=== PATIENT | male | born 1960 | race Two or more races ===

== ENCOUNTER 2020-09-07 00:01 | Inpatient (IN) | payer MEDICARE, OTHER ==
[~2020-09-07] VITALS: Ht 162.6 cm; Wt 79.4 kg
[2020-09-08] MEDS ORDERED: MAGNESIUM HYDROXIDE 30 ML UDC PO PRN (03:30)
[2020-09-08] MEDS ORDERED: MAG HYDROX/AL HYDROX/SIMETH 30 ML UDC PO PRN (03:30)
[2020-09-08] MEDS ORDERED: BLOOD SUGAR DIAGNOSTIC 1 EACH STRIP IN ONE (03:30)
[2020-09-08] MEDS ORDERED: ACETAMINOPHEN 325 MG TABLET PO PRN (03:30)
[2020-09-08] MEDS ORDERED: TEMAZEPAM 7.5 MG CAPSULE PO PRN (03:30)
[2020-09-08] MEDS ORDERED: HYDR-4384 PO (03:53)
[2020-09-08] MEDS ORDERED: TADA5TAB2 PO (03:53)
[2020-09-08] MEDS ORDERED: DORZ10DR10 EACHEYE (03:53)
[2020-09-08] MEDS ORDERED: ATEN25TA PO (03:53)
[2020-09-08] MEDS ORDERED: BUPR300T52 PO (03:53)
[2020-09-08] MEDS ORDERED: ATOR10TA PO (03:53)
[2020-09-08] MEDS ORDERED: OMEP40CA13 PO (03:53)
[2020-09-08] MEDS ORDERED: PRED5DRO16 EACHEYE (03:53)
[2020-09-08] MEDS ORDERED: LISI2.5T2 PO (03:53)
[2020-09-08] MEDS ORDERED: SIMV10TA98 PO (03:53)
[2020-09-08] MEDS ORDERED: DEXT15DR6 EACHEYE (03:53)
[2020-09-08] MEDS ORDERED: BUPR150T5 PO (03:53)
[2020-09-08] MEDS ORDERED: BIMA2.5D5 EACHEYE (03:53)
[2020-09-08] MEDS ORDERED: LEVE500T9 PO (03:53)
[2020-09-08] MEDS ORDERED: FINA5TAB11 PO (03:53)
[2020-09-08] MEDS ORDERED: GABA800T11 PO (03:53)
[2020-09-08] MEDS ORDERED: FOLI1CAP7 PO (03:53)
[2020-09-08] MEDS ORDERED: LATA2.5D15 EACHEYE (03:53)
[2020-09-08] MEDS ORDERED: ASPI-1169 PO (03:53)
[2020-09-08] MEDS ORDERED: BRIM5DRO3 LEFTEYE (03:53)
[2020-09-08 04:10] VITALS: BP 133/60
[2020-09-08] MEDS ORDERED: IBUP-1957 PO (04:13)
[2020-09-08] MEDS ORDERED: DIPH25CA83 PO (04:13)
[2020-09-08] MEDS: LORAZEPAM 0.5 MG TABLET PO PRN ×2 (04:27→11:37)
--- NOTE | 2020-09-08 05:37 | NUR ---
GPS TRACK SUPERVISOR NOTES: ADMITTED A 60YO MALE FROM [facility] DIRECT ADMIT ON 5150 HOLD FOR DANGER TO SELF, PER HOLD, PATIENT STATED THAT HE DID NOT FEEL LIKE LIVING ANYMORE, THAT LIFE IS NOT WORTH IT, AND THAT HE HAD THOUGHTS OF TAKING PILLS TO END HIS LIFE. PATIENT WILL BE UNDER THE CARE OF DR. GREGORIO AND DR. QUINTERO FOR PSYCH AND MEDICAL DOCTORS RESPECTIVELY. SKIN AND BODY ASSESSMENT DONE- NO SKIN ISSUES NOTED AT THIS TIME. PATIENT HAS A CONTINUOS BLOOD GLUCOSE MONITOR ON THE RIGHT LOWER QUADRANT OF THE BODY AND AN INSULIN PUMP ON THE LEFT LOWER QUADRANT OF THE ABDOMEN. ORIENTATION TO UNIT STAFF, DOCTORS AND POLICIES DONE. PATIENT ADVISED OF HIS HOLD. PT EVAL TRIGGERED FOR PATIENT SINCE HE IS UNABLE TO WALK AND HAS HAD MULTIPLE FALL INCIDENTS AT HOME. MED RECONCILIATION ALL MEDS INPUTTED IN THE SYSTEM- DR. QUINTERO MADE AWARE. PATIENT REQUESTED FOR ATIVAN 1 MG FOR ANXIETY- ADMINISTERED PRN ORDER. PROVIDED PATIENT WITH SNACKS AND TOILETRIES WELL. Q15 MIN CHECKS INITIATED. CARE PLAN STARTED. SAFETY AND FALL PRECAUTIONS OBSERVED. BED ALARM KEPT ON. WILL ENDORSE PATIENT'S CARE TO DAY SHIFT NURSE.
[2020-09-08 08:00] VITALS: BP 137/70
[2020-09-08] MEDS: PANTOPRAZOLE 40 MG TABLET.DR PO SCH (08:04)
[2020-09-08] MEDS: VIT B CMPLX 3/FA/VIT C/BIOTIN 1 TAB TABLET PO SCH (08:47)
[2020-09-08] MEDS: GABAPENTIN 400 MG CAPSULE PO SCH ×3 (08:47→16:23)
[2020-09-08] MEDS: ASPIRIN 81 MG TAB.CHEW PO SCH (08:47)
[2020-09-08] MEDS: LISINOPRIL (5MG) 5 MG TABLET PO SCH (08:48)
[2020-09-08] MEDS: LEVETIRACETAM (250 MG) 250 MG TABLET PO SCH ×2 (08:48→16:24)
[2020-09-08] MEDS: FINASTERIDE (5 MG) 5 MG TABLET PO SCH (08:48)
[2020-09-08] MEDS: ATENOLOL 25 MG TABLET PO SCH (08:48)
[2020-09-08] MEDS ORDERED: TADALAFIL PO SCH (09:00)
[2020-09-08] MEDS: HYDROCODONE/APAP 5/325MG TABLET PO PRN ×2 (09:53→16:24)
[2020-09-08] MEDS: DORZOLAMIDE OPTH 2% 10 ML BOTTLE EACHEYE SCH ×2 (11:18→16:24)
[2020-09-08] MEDS: prednisoLONE ACET 1% OPHT DROP 5 ML BOTTLE EACHEYE SCH ×2 (11:18→16:24)
--- NOTE | 2020-09-08 11:38 | NUR ---
RN NOTE- C/O ANXIETY. ATIVAN 1 MG GIVEN
[2020-09-08] MEDS: BLOOD SUGAR DIAGNOSTIC 1 EACH STRIP IN SCH ×3 (11:45→22:09)
--- NOTE | 2020-09-08 11:54 | NUR ---
Family Contact: SW called the pts , Carol ([phone]), and informed her that the pt is going to be discharged back home once he is stable and cleared for discharge. Pts stated that she will be available to pick him up when that time comes and stated that she is the pts [facility] caregiver.
--- NOTE | 2020-09-08 13:35 | NUR ---
Initial Discharge Plan: Pt currently resides at his home with his , Carol ([phone]), located at [address] [place] [address]; ([phone]). Per pt, he would like to return to his home. SW will work with the pt and the MD regarding appropriate discharge planning. SW will form a safe and proper discharge.
[2020-09-08 16:00] VITALS: BP 154/84
[2020-09-08 20:36] VITALS: BP 153/73
[2020-09-08] MEDS: TRAZODONE 50 MG TABLET PO SCH (21:58)
[2020-09-08] MEDS: ATORVASTATIN 10 MG TABLET PO SCH (21:58)
[2020-09-08] MEDS: LATANOPROST EYE DROP 0.005% 2.5 ML BOTTLE OP SCH (21:58)
[2020-09-09] MEDS: HYDROCODONE/APAP 5/325MG TABLET PO PRN ×3 (00:50→16:23)
--- NOTE | 2020-09-09 00:52 | NUR ---
GPS RN NOTES: PT COMPLAINED OF LOWER BACK PAIN, RATES PAIN LEVEL 9/10. NORCO 5/325MG 1TAB GIVEN PO PRN ORDERED AT 0051. WILL CONTINUE TO MONITOR AND ASSESS.
[2020-09-09 06:23] LABS: BASOPHILS % (AUTO) 0.7 % (0.0-2.0); EOSINOPHILS % (AUTO) 2.9 % (0.0-6.0); HEMATOCRIT 37 % (39-51); LYMPHOCYTES # (AUTO) 1.2 /CMM (0.8-4.8); LYMPHOCYTES % (AUTO) 28.8 % (20.0-44.0); MEAN CORPUSCULAR HGB CONC 33 g/dl (31.0-36.0); MEAN CORPUSCULAR VOLUME 90 fL (80-96); MONOCYTES # (AUTO) 0.3 /CMM (0.1-1.30); MONOCYTES % (AUTO) 6.4 % (2.0-12.0); NEUTROPHILS # (AUTO) 2.6 /CMM (1.8-8.9); NEUTROPHILS % (AUTO) 61.2 % (43.0-81.0); PLATELET COUNT (AUTO) 172 /CMM (150-450); RED BLOOD CELL COUNT(AUTO) 4.09 MIL/uL (4.5-6.0); WHITE BLOOD COUNT (AUTO) 4.3 K/uL (4.3-11.0)
[2020-09-09 07:38] LABS: CHOLESTEROL 128 mg/dL (<200); HDL CHOLESTEROL 75 mg/dL (40-60); LDL 50 mg/dL (0-99); TRIGLYCERIDES 45 mg/dL (30-150)
[2020-09-09 07:39] LABS: THYROID STIMULATING HORMONE 3.381 uIU/mL (0.358-3.74)
[2020-09-09 07:41] LABS: ALBUMIN 2.8 g/dL (3.4-5.0); BILIRUBIN,TOTAL 0.5 mg/dL (0.2-1.0); CALCIUM, SERUM 8.8 mg/dL (8.5-10.1); CREATININE 0.9 mg/dL (0.6-1.3); MAGNESIUM 1.6 mg/dL (1.8-2.4); PHOSPHORUS 2.7 mg/dL (2.5-4.9); POTASSIUM 4.4 mmol/L (3.5-5.1); TOTAL PROTEIN, SERUM 5.3 g/dL (6.4-8.2)
[2020-09-09] MEDS: BLOOD SUGAR DIAGNOSTIC 1 EACH STRIP IN SCH ×4 (07:44→21:46)
[2020-09-09 08:00] VITALS: BP 152/65
[2020-09-09] MEDS: LEVETIRACETAM (250 MG) 250 MG TABLET PO SCH ×2 (08:05→16:24)
[2020-09-09] MEDS: VIT B CMPLX 3/FA/VIT C/BIOTIN 1 TAB TABLET PO SCH (08:05)
[2020-09-09] MEDS: ASPIRIN 81 MG TAB.CHEW PO SCH (08:05)
[2020-09-09] MEDS: GABAPENTIN 400 MG CAPSULE PO SCH ×3 (08:05→16:24)
[2020-09-09] MEDS: PANTOPRAZOLE 40 MG TABLET.DR PO SCH (08:05)
[2020-09-09] MEDS: ATENOLOL 25 MG TABLET PO SCH (08:06)
[2020-09-09] MEDS: FINASTERIDE (5 MG) 5 MG TABLET PO SCH (08:06)
[2020-09-09] MEDS: LISINOPRIL (5MG) 5 MG TABLET PO SCH (08:07)
[2020-09-09] MEDS: prednisoLONE ACET 1% OPHT DROP 5 ML BOTTLE EACHEYE SCH ×2 (08:07→16:13)
[2020-09-09] MEDS: DORZOLAMIDE OPTH 2% 10 ML BOTTLE EACHEYE SCH ×2 (08:08→16:13)
[2020-09-09] MEDS: clonazePAM 0.5 MG TABLET PO SCH ×2 (09:00→16:24)
[2020-09-09] MEDS ORDERED: Magnesium 1GM/D5W 100ML PREMIX 100 ML IV SCH (09:30)
--- NOTE | 2020-09-09 09:39 | NUR ---
RN-CO: NORCO GIVEN FOR C/O 9 LOWER BACK PAIN.
[2020-09-09] MEDS ORDERED: MAGNESIUM OXIDE 400 MG TABLET PO ONE (10:00)
[2020-09-09] MEDS: LORAZEPAM 1 MG TABLET PO PRN (12:02)
--- NOTE | 2020-09-09 12:03 | NUR ---
RN-CO: ATIVAN GIVEN FOR C/O ANXIETY.
--- NOTE | 2020-09-09 12:06 | NUR ---
Individual Intervention: SW attempted to conduct an individual intervention in lieu of group therapy due to the lack of involvement in this current patient population. Pt presented in his bedroom and stated that he is very focused on his discharge. SW stated that she does not have a discharge date at this time and the pt appeared to be frustrated. Pt states that he feels as if he does not belong at this facility and that he is not feeling suicidal. SW stated that the pt will be discharged as soon as the MD states that the pt is ready and safe.
[2020-09-09 16:00] VITALS: BP 129/68
--- NOTE | 2020-09-09 16:37 | NUR ---
RN-CO: NORCO GIVEN FOR LOWERBACK PAIN 02/27.
--- NOTE | 2020-09-09 17:34 | NUR ---
RN-CO: BLOOD SUGAR BEFORE DINNER 185. INSULIN WAS DELIVERED VIA HIS OWN DM MACHINE INSULIN DISPENSER.
--- NOTE | 2020-09-09 17:51 | NUR ---
RN-CO: Patient refused for me to take his blood sugar.Since he has an automatic blood sugar monitor in him.
[2020-09-09] MEDS: ATORVASTATIN 10 MG TABLET PO SCH (21:58)
[2020-09-09] MEDS: TRAZODONE 50 MG TABLET PO SCH (21:59)
[2020-09-09] MEDS: LATANOPROST EYE DROP 0.005% 2.5 ML BOTTLE OP SCH (22:00)
[2020-09-10] MEDS: LORAZEPAM 1 MG TABLET PO PRN ×2 (02:34→14:31)
--- NOTE | 2020-09-10 02:36 | NUR ---
GPS RN NOTES: Pt woke up asking for Ativan for anxiety. Ativan 1mg 1tab po prn given as ordered at 0234.Will continue to monitor.
[2020-09-10 06:40] VITALS: BP 140/82
[2020-09-10 06:55] LABS: CALCIUM, SERUM 8.9 mg/dL (8.5-10.1); CREATININE 0.8 mg/dL (0.6-1.3); MAGNESIUM 2.6 mg/dL (1.8-2.4); POTASSIUM 4.1 mmol/L (3.5-5.1)
[2020-09-10] MEDS: BLOOD SUGAR DIAGNOSTIC 1 EACH STRIP IN SCH ×4 (07:30→21:37)
[2020-09-10] MEDS: PANTOPRAZOLE 40 MG TABLET.DR PO SCH (08:07)
[2020-09-10] MEDS: prednisoLONE ACET 1% OPHT DROP 5 ML BOTTLE EACHEYE SCH ×2 (08:09→16:26)
[2020-09-10] MEDS: GABAPENTIN 400 MG CAPSULE PO SCH ×3 (08:09→16:20)
[2020-09-10] MEDS: ASPIRIN 81 MG TAB.CHEW PO SCH (08:09)
[2020-09-10] MEDS: DORZOLAMIDE OPTH 2% 10 ML BOTTLE EACHEYE SCH ×2 (08:09→16:26)
[2020-09-10] MEDS: LISINOPRIL (5MG) 5 MG TABLET PO SCH (08:10)
[2020-09-10] MEDS: VIT B CMPLX 3/FA/VIT C/BIOTIN 1 TAB TABLET PO SCH (08:10)
[2020-09-10] MEDS: clonazePAM 0.5 MG TABLET PO SCH ×2 (08:10→16:48)
[2020-09-10] MEDS: LEVETIRACETAM (250 MG) 250 MG TABLET PO SCH ×2 (08:10→16:20)
[2020-09-10] MEDS: ATENOLOL 25 MG TABLET PO SCH (08:11)
[2020-09-10] MEDS: HYDROCODONE/APAP 5/325MG TABLET PO PRN ×3 (08:15→20:33)
[2020-09-10] MEDS: FINASTERIDE (5 MG) 5 MG TABLET PO SCH (08:15)
[2020-09-10 09:58] VITALS: BP 160/89
[2020-09-10 16:00] VITALS: BP 154/81
[2020-09-10] MEDS: TRAZODONE 50 MG TABLET PO SCH (21:36)
[2020-09-10] MEDS: ATORVASTATIN 10 MG TABLET PO SCH (21:36)
[2020-09-10] MEDS: LATANOPROST EYE DROP 0.005% 2.5 ML BOTTLE OP SCH (21:37)
[2020-09-10 22:00] VITALS: BP 136/72
[2020-09-11] MEDS: HYDROCODONE/APAP 5/325MG TABLET PO PRN ×3 (04:43→18:37)
[2020-09-11 08:00] VITALS: BP 162/75
[2020-09-11] MEDS: BLOOD SUGAR DIAGNOSTIC 1 EACH STRIP IN SCH ×4 (08:00→22:03)
[2020-09-11] MEDS: PANTOPRAZOLE 40 MG TABLET.DR PO SCH (08:03)
[2020-09-11] MEDS: GABAPENTIN 400 MG CAPSULE PO SCH ×3 (08:51→17:22)
[2020-09-11] MEDS: ASPIRIN 81 MG TAB.CHEW PO SCH (08:51)
[2020-09-11] MEDS: LEVETIRACETAM (250 MG) 250 MG TABLET PO SCH ×2 (08:51→17:22)
[2020-09-11] MEDS: FINASTERIDE (5 MG) 5 MG TABLET PO SCH (08:51)
[2020-09-11] MEDS: ATENOLOL 25 MG TABLET PO SCH (08:52)
[2020-09-11] MEDS: LISINOPRIL (5MG) 5 MG TABLET PO SCH (08:52)
[2020-09-11] MEDS: VIT B CMPLX 3/FA/VIT C/BIOTIN 1 TAB TABLET PO SCH (08:54)
[2020-09-11] MEDS: clonazePAM 0.5 MG TABLET PO SCH ×3 (08:55→17:22)
[2020-09-11] MEDS: prednisoLONE ACET 1% OPHT DROP 5 ML BOTTLE EACHEYE SCH ×2 (08:55→17:27)
[2020-09-11] MEDS: DORZOLAMIDE OPTH 2% 10 ML BOTTLE EACHEYE SCH ×2 (08:55→17:27)
--- NOTE | 2020-09-11 09:00 | NUR ---
RN NOTE- PT INTERACTIVE, CALM NEEDY. PO INTAKE GOOD MED COMPLIANT, DENIES SI HI AH VH. PT CHANGED TUBING AND ADDED HUMALOG TO INSULIN PUMP. CHARGED PUMP WELL. DIRECTABLE
--- NOTE | 2020-09-11 11:16 | NUR ---
RN NOTE/NARCOTICS WASTE - ADMINISTERED 0.25 MG KLONOPIN. WENT TO WASTE 0.25 MG. LIZY LITTLE FROM [facility] CALLED. DESTINEY WOULDN'T RECORD. CALLED [employer]ANT MANAGER BRIGIDO. IT WOULDN'T RECORD FOR HER EITHER. PHARMACY NOTIFIED, SPOKE Oleg WOLF AND TOLD TO RECORD WASTE IN NOTES AND THE PHARMACY WOULD RESOLVE ISSUE.
[2020-09-11 16:00] VITALS: BP 158/69
[2020-09-11 19:42] VITALS: BP 152/68
[2020-09-11] MEDS: TRAZODONE 50 MG TABLET PO SCH (21:16)
[2020-09-11] MEDS: LATANOPROST EYE DROP 0.005% 2.5 ML BOTTLE OP SCH (21:16)
[2020-09-11] MEDS: ATORVASTATIN 10 MG TABLET PO SCH (21:16)
[2020-09-11 21:30] VITALS: BP 137/74
[2020-09-11] MEDS ORDERED: DEXTROSE 50%-WATER 50 ML DISP.SYRIN IV PRN (22:30)
[2020-09-11] MEDS: INSULIN REGULAR, HUMAN 100 UNIT/ML 3 ML VIAL SQ PRN ×2 (22:37→23:22)
--- NOTE | 2020-09-11 22:37 | NUR ---
RN NOTES: BLOOD SUGAR PT. BLOOD SUGAR 420 , NOTIFED OF MY FINDING [employer]AY UNIT FEEDER ABDIAZIZ GREY, HE ORDERS SLIDING SCALE , PER HIS ORDES 10 UNIT OF INSULLIN REGULAR GIVEN WITH COSIGND FROM [facility] NURSE DIRK GRIMM , PER ABDIAZIZ GREY GIVE ORDERS RECHECK THE BLOOD SUGAR IN 30 MIN , NEW ORDES RECIVED AND CARRIED OUT. NOTIFIED REYNA REGARDING ABOUT PT.HAS OWN INSULLIN PUMP, PER ABDIAZIZ ELECTRICAL AND RADIO AIRCRAFT MECHANIC REMOVED THE INSULLIN PUMP FROM PATIENT AND PRIMARY NURSE REMOVED THE INSULIN PUMP FROM PATIENT AND KEEP IN MED CARD IN NURSING STATION , AND EXPLINED TO THE PATIENT. DR. CORBETT ,PT. VERBALIZED UNDERSTANDING PT. HAS OWN INSULLIN PUMP AND PT. WAS USING INSULLIN PUMP IN PREVIOUS SHIFT , PER PT. HIS INSULLIN PUMP NOT WORKING AT THIS TIME NOT GIVE ANY INSULLIN Addendum: 09/11/20 at 2734 by PACO RAMSEY RN SUPERVISIOR MADE AWRE OF PT. BLOOD SUGAR.
[2020-09-11] MEDS: LORAZEPAM 1 MG TABLET PO PRN (22:46)
--- NOTE | 2020-09-11 22:48 | NUR ---
RN NOTES ANXIETY PT. C/O FEELING ANXIETY,RESTLESS ATIVAN 1 MG PO PRN GIVEN PER PT. REQUEST, WILL CONTINUE TO MONITOR.
--- NOTE | 2020-09-11 23:22 | NUR ---
RN NOTES : RECHECK PT. BLOOD SUGAR 478 , NOTIFIED MY FINDING FUNERAL PRE ARRANGEMENT COUNSELOR REYNA RESET MERCHANDISER, ORDRES RECEIVED GIVE 10 UNITS REGULAR INSULLIN SQ , AND RECHECK IN 1 HOUR , NEW ORDERS RECIVED AND KULDIP OUT. PER REYNA RESET MERCHANDISER 10 UNITS REGULAR INSULLIN GIVEN ,COSIGNED WITH [facility] RN LEWIS ROLDAN, WILL CONTINUE WITH CARE. SUPER VISIOR MADE AWRE OF MY FINDING BLOOD SUGAR . PT. RESTING AT HIS TIME , PER PT. I DIDNOT FEELING ANY DISCOMFORT
--- NOTE | 2020-09-12 00:30 | NUR ---
RN NOTES: RECHECK BLOOD SUGAR 396 , NOTIFED ABDIAZIZ GREY PT. BLOOD SUGAR 396, NEW ORDES RECEIVED RECHECK BLOOD SUGAR IN 4 HOURS, NEW ORDERS RECIVED AND CARRIED OUT, WILL CONTINUE WITH PLAN OF CARE .
--- NOTE | 2020-09-12 02:50 | NUR ---
RN NOTES: RECHECK BLOOD SUGAR 211 , NOTIFED GRADUATE RN REYNA GREY PT. BS 211 NO NEW ORDES GIVEN , PT. DENIES ANY PAIN DISCOMFORT AT THIS TIME , WILL CONTINUE TO MONITOR.
[2020-09-12] MEDS: HYDROCODONE/APAP 5/325MG TABLET PO PRN ×3 (03:01→21:30)
--- NOTE | 2020-09-12 03:03 | NUR ---
RN NOTES: PAIN PT. C/O LOWER BACK PAIN 02/27 , NARCO 5-325 MG PO PRN GIVEN PER PT. REQUEST WILL CONTINUE TO MONITOR.
--- NOTE | 2020-09-12 04:32 | NUR ---
RN NOTES: RECHECK BLOOD SUGAR 197 , NOTIFED STATION REPAIRER REYNA FREIGHT BROKER AGENT PT. BS 197 NO NEW ORDES GIVEN , PT. DENIES ANY PAIN DISCOMFORT AT THIS TIME , NO ACUTE DISTRESS NOTED ,WILL CONTINUE TO MONITOR.
--- NOTE | 2020-09-12 07:00 | NUR ---
RN OPENING NOTE PT AWAKE IN BED. PT IS A/O X3 AND IS ABLE TO MAKE NEEDS KNOWN TO THE NURSES. COOPERATIVE DEMEANOR. PT DENIES ANY SI OR HI. PT SHOWS NO SIGNS OF RESPIRATORY DISTRESS OR SOB. COMPLAINT OF PAIN AT 8/10. PT IS ABLE TO AMBULATE INDEPENDENTLY. PT HAS NO CURRENT NEEDS AT THE TIME. SAFETY MEASURES IMPLEMENTED. SIDE RAILS RAISED. LOWERED BED. CALL LIGHT WITHIN REACH. WILL CONTINUE TO MONITOR.
[2020-09-12] MEDS: INSULIN REGULAR, HUMAN 100 UNIT/ML 3 ML VIAL SQ PRN ×4 (07:21→21:37)
[2020-09-12 08:00] VITALS: BP 161/77
[2020-09-12] MEDS: BLOOD SUGAR DIAGNOSTIC 1 EACH STRIP IN SCH ×4 (08:20→21:44)
[2020-09-12] MEDS: VIT B CMPLX 3/FA/VIT C/BIOTIN 1 TAB TABLET PO SCH (09:53)
[2020-09-12] MEDS: FINASTERIDE (5 MG) 5 MG TABLET PO SCH (09:53)
[2020-09-12] MEDS: ASPIRIN 81 MG TAB.CHEW PO SCH (09:54)
[2020-09-12] MEDS: ATENOLOL 25 MG TABLET PO SCH (09:54)
[2020-09-12] MEDS: GABAPENTIN 400 MG CAPSULE PO SCH ×3 (09:55→17:01)
[2020-09-12] MEDS: LEVETIRACETAM (250 MG) 250 MG TABLET PO SCH ×2 (09:55→17:01)
[2020-09-12] MEDS: LISINOPRIL (5MG) 5 MG TABLET PO SCH (09:55)
[2020-09-12] MEDS: clonazePAM 0.5 MG TABLET PO SCH ×3 (09:56→17:01)
[2020-09-12] MEDS: DORZOLAMIDE OPTH 2% 10 ML BOTTLE EACHEYE SCH ×2 (09:57→17:03)
[2020-09-12] MEDS: prednisoLONE ACET 1% OPHT DROP 5 ML BOTTLE EACHEYE SCH ×2 (09:57→17:03)
[2020-09-12] MEDS: PANTOPRAZOLE 40 MG TABLET.DR PO SCH (10:03)
[2020-09-12] MEDS: LORAZEPAM 1 MG TABLET PO PRN (13:44)
[2020-09-12 16:00] VITALS: BP 151/75
--- NOTE | 2020-09-12 18:20 | NUR ---
RN CLOSING NOTE PT AWAKE IN BED. PT IS A/O X3 AND IS ABLE TO MAKE NEEDS KNOWN TO THE NURSES. FRUSTRATED DEMEANOR AT SELF DUE TO INABILITY TO FIX INSULIN PUMP AT THE TIME. PT IS COMPLAINT WITH SCHEDULED MEDICATION. PT DENIES ANY SI OR HI. PT SHOWS NO SIGNS OF RESPIRATORY DISTRESS OR SOB. NO CURRENT COMPLAINTS OF PAIN. PT IS ABLE TO AMBULATE INDEPENDENTLY. ROUTINE MEDS GIVEN. SAFETY MEASURES IMPLEMENTED. SIDE RAILS RAISED. LOWERED BED. CALL LIGHT WITHIN REACH.
[2020-09-12 20:00] VITALS: BP 156/75
[2020-09-12] MEDS: LATANOPROST EYE DROP 0.005% 2.5 ML BOTTLE OP SCH (21:21)
[2020-09-12] MEDS: ATORVASTATIN 10 MG TABLET PO SCH (21:22)
[2020-09-12] MEDS: TRAZODONE 50 MG TABLET PO SCH (21:22)
[2020-09-12 21:30] VITALS: BP 132/74
[2020-09-13] MEDS: BLOOD SUGAR DIAGNOSTIC 1 EACH STRIP IN SCH ×4 (07:30→21:11)
[2020-09-13] MEDS: PANTOPRAZOLE 40 MG TABLET.DR PO SCH (07:30)
[2020-09-13 08:00] VITALS: BP 164/88
[2020-09-13] MEDS: INSULIN REGULAR, HUMAN 100 UNIT/ML 3 ML VIAL SQ PRN (09:08)
[2020-09-13] MEDS: GABAPENTIN 400 MG CAPSULE PO SCH ×3 (09:45→17:33)
[2020-09-13] MEDS: LEVETIRACETAM (250 MG) 250 MG TABLET PO SCH ×2 (09:45→17:33)
[2020-09-13] MEDS: clonazePAM 0.5 MG TABLET PO SCH ×3 (09:45→17:33)
[2020-09-13] MEDS: VIT B CMPLX 3/FA/VIT C/BIOTIN 1 TAB TABLET PO SCH (09:45)
[2020-09-13] MEDS: FINASTERIDE (5 MG) 5 MG TABLET PO SCH (09:46)
[2020-09-13] MEDS: LISINOPRIL (5MG) 5 MG TABLET PO SCH (09:46)
[2020-09-13] MEDS: ASPIRIN 81 MG TAB.CHEW PO SCH (09:47)
[2020-09-13] MEDS: prednisoLONE ACET 1% OPHT DROP 5 ML BOTTLE EACHEYE SCH ×2 (09:53→17:35)
[2020-09-13] MEDS: DORZOLAMIDE OPTH 2% 10 ML BOTTLE EACHEYE SCH ×2 (09:53→17:35)
[2020-09-13] MEDS: ATENOLOL 25 MG TABLET PO SCH (10:00)
[2020-09-13] MEDS: HYDROCODONE/APAP 5/325MG TABLET PO PRN ×2 (10:59→21:10)
--- NOTE | 2020-09-13 10:59 | NUR ---
RN NOTE :Patient c/o lower back pain medicated with [place] 5mg/325mg x1 ,will continue to monitor .
[2020-09-13 16:00] VITALS: BP 163/70
[2020-09-13 20:00] VITALS: BP 118/68
[2020-09-13] MEDS: LORAZEPAM 1 MG TABLET PO PRN (20:17)
--- NOTE | 2020-09-13 20:18 | NUR ---
nurses notes: patient requested for ativan medication for anxiety. given ativan 1mg as prn order. will monitor patient.
[2020-09-13] MEDS: ATORVASTATIN 10 MG TABLET PO SCH (21:09)
[2020-09-13] MEDS: LATANOPROST EYE DROP 0.005% 2.5 ML BOTTLE OP SCH (21:11)
--- NOTE | 2020-09-13 21:15 | NUR ---
NURSES NOTES: PATIENT'S BLOOD SUGAR IS 185MG/DL. PATIENT REFUSED TO HAVE THE COVERAGE AT THIS TIME. PER PATIENT HIS PUMP SHOULD BE WORKING. WILL CONTINUE TO MONITOR PATIENT'S BLOOD GLUCOSE LEVELS.
[2020-09-13 21:18] VITALS: BP 159/91
[2020-09-13] MEDS: TRAZODONE 50 MG TABLET PO SCH (22:16)
[2020-09-14] MEDS: LORAZEPAM 1 MG TABLET PO PRN (04:44)
--- NOTE | 2020-09-14 04:44 | NUR ---
NURSES NOTES: PATIENT STATES HE IS FEELING ANXIOUS AND IS REQUESTING FOR HIS ATIVAN. ATIVAN 1 MG GIVEN ORALLY PRN.. WILL CONTINUE TO MONITOR PATIENT.
[2020-09-14] MEDS: BLOOD SUGAR DIAGNOSTIC 1 EACH STRIP IN SCH ×2 (06:35→12:33)
[2020-09-14] MEDS: PANTOPRAZOLE 40 MG TABLET.DR PO SCH (06:35)
[2020-09-14] MEDS: HYDROCODONE/APAP 5/325MG TABLET PO PRN (06:36)
--- NOTE | 2020-09-14 06:41 | NUR ---
NURSES NOTES: PATIENT COMPLAINS OF PAIN ON HIS LOWER BACK- NORCO 5/325 TAB GIVEN PRN. PATIENT'S BLOOD SUGAR IS 172MG/DL- PATIENT REFUSED TO HAVE COVERAGE BE GIVEN.
[2020-09-14] MEDS ORDERED: clonazePAM 0.5 MG TABLET PO SCH (07:29)
[2020-09-14] MEDS: LISINOPRIL (5MG) 5 MG TABLET PO SCH (09:00)
--- NOTE | 2020-09-14 09:00 | NUR ---
RN NOTE- ALERT ORIENTED NEEDY DENIES ALL CALM DIRECTABLE MED COMPLIANT
[2020-09-14] MEDS: DORZOLAMIDE OPTH 2% 10 ML BOTTLE EACHEYE SCH (09:27)
[2020-09-14] MEDS: prednisoLONE ACET 1% OPHT DROP 5 ML BOTTLE EACHEYE SCH (09:27)
[2020-09-14] MEDS: clonazePAM 0.5 MG TABLET PO SCH ×2 (09:28→13:03)
[2020-09-14] MEDS: ATENOLOL 25 MG TABLET PO SCH (09:28)
[2020-09-14] MEDS: ASPIRIN 81 MG TAB.CHEW PO SCH (09:28)
[2020-09-14] MEDS: GABAPENTIN 400 MG CAPSULE PO SCH ×2 (09:28→13:04)
[2020-09-14] MEDS: FINASTERIDE (5 MG) 5 MG TABLET PO SCH (09:28)
[2020-09-14] MEDS: LEVETIRACETAM (250 MG) 250 MG TABLET PO SCH (09:32)
[2020-09-14] MEDS: VIT B CMPLX 3/FA/VIT C/BIOTIN 1 TAB TABLET PO SCH (09:32)
--- NOTE | 2020-09-14 11:02 | NUR ---
SW Discharge Note: Patient will be discharged home to [address] [place] [address]; ([phone]). Patients daughter Dolores ([phone]) is aware and agreeable to patients discharge. Patients Carol ([phone]) will steel pickler patient at 1PM. Upon discharge, patient appear to be calm, cooperative and happy to be going home. Patient denies suicidal and homicidal ideation. Patient will follow up with (Psychiatrist) Dr. Lemus located at [address], [place] [address]; ([phone]) on 09/16/20 at 1PM and faxed patients clinicals to the office ([phone]). Patient will follow up with (Forest Worker) Dr. Joiner [facility] located at [address] [place] [address]; ([phone]). Patient presented with euthymic and congruent mood.
[2020-09-14 11:23] VITALS: BP 160/77
--- NOTE | 2020-09-14 14:00 | NUR ---
ETHYLENE OXIDE PANELBOARD OPERATOR NOTE- PT DC AT THIS TIME TO HOME WITH SPOUSE VIA PRIVATE VEHICLE AND WCR. PT COURT HEARING THIS MORNING ORDERED HIS RELEASE. PT IS ALERT ORIENTED TO PERSON PLACE TIME PURPOSE. DENIES SI HI AH VH. SKIN INTACT. PT REFUSES PNA AND INFLUENZA VACCINE. VALUABLES RETURNED TO PT AND SIGNED FOR. ID [id number] REMOVED. DC PAPERWORK REVIEWED W FAMILY AND PT. ESCORTED OFF UNIT AND ASSISTED TO VEHICLE BY THIS RN.
== END 2020-09-14 14:00 | disposition home or self-care (01) | DRG 885 ==
LOC: GPS 09-08 02:20
PROVIDERS: ADMIT Psychiatry & Neurology Psychiatry
DX: F33.9 Major depressive disorder, recurrent, unspecified (principal); R45.851 Suicidal ideations; F41.9 Anxiety disorder, unspecified; E03.9 Hypothyroidism, unspecified; E10.9 Type 1 diabetes mellitus without complications; E83.42 Hypomagnesemia; E88.09 Other disorders of plasma-protein metabolism, not elsewhere classified; I10 Essential (primary) hypertension; M19.90 Unspecified osteoarthritis, unspecified site; N40.0 Benign prostatic hyperplasia without lower urinary tract symptoms; Z79.4 Long term (current) use of insulin; H40.9 Unspecified glaucoma; H54.61 Unqualified visual loss, right eye, normal vision left eye; R56.9 Unspecified convulsions
CPT/HCPCS: 36415; 80048-TC; 80053-TC; 80061-TC; 82962-TC; 83735-TC; 84100-TC; 84443-TC; 85025-TC; 87081-TC; 97112-TC; 97116-TC; 97530-TC; J1815